=== PATIENT | male | born 1955 | race Hispanic/Latino ===

== ENCOUNTER 2018-03-06 07:01 | Day surgery (SDC) | payer BC ==
[2018-03-06 07:35] VITALS: BMI 34.0
[2018-03-06] MEDS ORDERED: Propofol 10 mg/ml Inj (20 ML) ONE (08:38)
--- NOTE | 2018-03-06 08:42 | CP.SDSHP ---
Same Day Surgery H & P - History Proposed Procedure: colonoscopy Pre-Op Diagnosis: screening - Previous Medical/Surgical History Cardiac: Hypertension - Allergies Allergies: Allergies No Known Allergies Allergy (Verified 03/06/18 07:35) - Physical Exam Vital Signs: Vital Signs 03/06/18 07:38 Temperature 98.1 F Pulse Rate 80 Respiratory 16 Rate Blood Pressure 142/82 O2 Sat by Pulse 97 Oximetry Mental Status: Alert & Oriented x3 Neuro: WNL Heart: WNL Lungs: WNL GI: WNL - {Optional Preform as Required} Abdomen: WNL - Impression Impression: screening Pt. Evaluated Today:Candidate for Anesthesia & Procedure: Yes - Date & Time Date: 03/06/18 Time: 08:42 Short Stay Discharge - Short Stay Discharge Admitting Diagnosis/Reason for Visit: ENCOUNTER FOR SCREENING FOR MALIGNANT NEOPLASM OF Disposition: HOME/ ROUTINE
[2018-03-06] MEDS ORDERED: Lactated Ringer's 1,000 ML IV ONE (08:45)
[2018-03-06 10:05] VITALS: BP 129/81; PULSE 72; RESP 98; TEMP 97.8; O2SAT 98
== END 2018-03-06 10:00 | disposition home or self-care (01) ==
LOC: C.ENDO 07:01
PROVIDERS: ATTEND Internal Medicine Gastroenterology
DX: Z12.11 Encounter for screening for malignant neoplasm of colon (principal); D12.4 Benign neoplasm of descending colon; D12.2 Benign neoplasm of ascending colon; K63.5 Polyp of colon; K62.1 Rectal polyp; I10 Essential (primary) hypertension
CPT/HCPCS: 45380; 88305; J7120